=== PATIENT | female | born 1945 | race African-American/Black ===

== ENCOUNTER 2016-12-10 08:37 | Inpatient (IN) | payer MEDICARE, MEDICAID ==
[~2016-12-10] VITALS: Ht 162.6 cm; Wt 83.0 kg
[2016-12-10 08:43] VITALS: BP 181/68
[2016-12-10] MEDS ORDERED: CLOPIDOGREL75 MG ORAL (08:57)
[2016-12-10] MEDS ORDERED: FERROUS SULFAT325 MG ORAL (08:57)
[2016-12-10] MEDS ORDERED: LASIX40 MG ORAL (08:57)
[2016-12-10] MEDS ORDERED: NAPROXEN500 M2 ORAL (08:57)
[2016-12-10] MEDS ORDERED: VITAMIN C500 M1 ORAL (08:57)
[2016-12-10] MEDS ORDERED: METOPROLOL TART50 M1 ORAL (08:57)
[2016-12-10] MEDS ORDERED: DOXAZOSIN MESYLA4 MG ORAL (08:57)
[2016-12-10] MEDS ORDERED: HYDRALAZINE HC100 MG ORAL (08:57)
[2016-12-10] MEDS ORDERED: LORazepam Inj 2mg/ml 1ml IV ONE (09:00)
[2016-12-10] MEDS ORDERED: Morphine Sulfate 2mg/ml Inj IVP ONE (09:00)
[2016-12-10] MEDS ORDERED: Nitroglycerin 2% oint pkt TOPIC ONE (09:00)
--- NOTE | 2016-12-10 09:11 | Emergency Room Report ---
History of Present Illness General Chief Complaint: Chest Pain Source: Patient Present Illness HPI The patient presents with substernal chest pain that started 45 minutes before presentation to the emergency department. She felt pressure radiating up into both of her arms. She also felt very shaky at that time. Paramedics gave her aspirin nitroglycerin and this helped a small amount. The pain is now 5/10. In August she had a stent placed. She's had 3 cardiac stents. She states that she had a normal treadmill before that. Also they said that she did not need a stent but then reversed that and put a stent in. She had allergic reaction to one of the blood thinning agents. Also she's had allergic reaction to hydrochlorothiazide. At the time she was in the hospital with lip swelling someone reported to her that she had multiple allergies to things as she does usually eat. She is on Plavix. She ate breakfast and included pepperoni which he usually doesn't eat. She's had GI problems. She had GI bleeds in september with hemoglobin of 6 requiring transfusions. She saw last and was told that her blood count was back up to 12. She denies any melena. She felt nauseated today but has not vomited. No abdominal pain. No fevers, cough, URI sy, dyspnea, dysuria. Allergies: Coded Allergies: [place] (Verified Allergy, Unknown, 12/10/16) CORN (Verified Allergy, Unknown, 12/10/16) HYDROCHLOROTHIAZIDE (Verified Allergy, Unknown, 12/10/16) PENICILLINS (Verified Allergy, Unknown, 12/10/16) COPIED FROM UNCODED SECTION TICAGRELOR (Verified Allergy, Unknown, 12/10/16) Wheat (Verified Allergy, Unknown, 12/10/16) Whole Milk (Verified Allergy, Unknown, 12/10/16) Uncoded Allergies: white egg (Allergy, Unknown, 12/10/16) Patient History Past Medical History: see triage record Past Surgical History: PTCA Social History: Denies: smoking Social History Narrative from home Reviewed Nursing Documentation: PMH: Agreed, PSxH: Agreed Nursing Documentation-PMH Hx Hypertension: Yes Review of Systems All Other Systems: negative except mentioned in HPI Physical Exam Vital Signs Date Time Temp Pulse Resp B/P Pulse Ox O2 Delivery O2 Flow Rate FiO2 12/10/16 08:28 97.0 82 18 181/68 95 Room Air Sp02 EP Interpretation: reviewed, normal General Appearance: well appearing, no apparent distress, GCS 15 Head: normocephalic Eyes: bilateral eye PERRL, bilateral eye other - arcus ENT: moist mucus membranes Neck: supple Respiratory: lungs clear, normal breath sounds Cardiovascular #1: regular rate, rhythm Cardiovascular #2: 2+ radial (R) Gastrointestinal: normal inspection, normal bowel sounds, non tender, no mass, non-distended Musculoskeletal: back normal, gait/station normal, normal range of motion Neurologic: alert, oriented x3, grossly normal Psychiatric: anxious Skin: normal inspection, warm/dry Medical Decision Making Diagnostic Impression: Primary Impression: ACS (acute coronary syndrome) ER Course Patient presents with substernal chest pressure. Differential includes acute myocardial infarction, acute coronary syndrome, GERD with esophageal spasm, anxiety amongst others. The fact that she had a recent stent placed puts her at higher risk. We need to evaluate her with EKG, chest x-ray and labs. She' ll be treated with nitroglycerin paste morphine and also Pepcid with some Ativan. Paramedics gave her aspirin in the field. Labs with negative troponin. EKG here shows normal sinus rhythm with a rate of 81, left atrial enlargement and left axis deviation with left ventricular hypertrophy. Patient improved with treatment. Still needs observation and further troponin tests. Admit telemetry Dr. Moss. Laboratory Tests Test 12/10/16 09:00 White Blood Count 6.7 K/UL (4.8-10.8) Red Blood Count 4.51 M/UL (4.20-5.40) Hemoglobin 12.7 G/DL (12.0-16.0) Hematocrit 40.3 % (37.0-47.0) Mean Corpuscular Volume 89 FL (80-99) Mean Corpuscular Hemoglobin 28.1 PG (27.0-31.0) Mean Corpuscular Hemoglobin Concent 31.5 G/DL (32.0-36.0) L Red Cell Distribution Width 17.4 % (11.6-14.8) H Platelet Count 183 K/UL (150-450) Mean Platelet Volume 8.5 FL (6.5-10.1) Neutrophils (%) (Auto) 65.7 % (45.0-75.0) Lymphocytes (%) (Auto) 21.7 % (20.0-45.0) Monocytes (%) (Auto) 8.4 % (1.0-10.0) Eosinophils (%) (Auto) 3.3 % (0.0-3.0) H Basophils (%) (Auto) 0.9 % (0.0-2.0) Prothrombin Time 10.0 SEC (9.30-11.50) Prothrombin Time INR 1.0 (0.9-1.1) PTT 28 SEC (23-33) Sodium Level 142 mEQ/L (135-145) Potassium Level 3.1 mEQ/L (3.4-4.9) L Chloride Level 103 mEQ/L (98-107) Carbon Dioxide Level 26 mEQ/L (20-30) Anion Gap 13 (5-15) Blood Urea Nitrogen 26 mg/dL (7-23) H Creatinine 1.3 mg/dL (0.5-0.9) H Estimate Glomerular Filtration Rate 49.2 mL/min (>60) Glucose Level 146 mg/dL (74-106) H Calcium Level 9.0 mg/dL (8.6-10.2) Total Bilirubin < 0.2 mg/dL (0.0-1.2) Aspartate Amino Transferase (AST) 14 U/L (5-40) Alanine Aminotransferase (ALT) 10 U/L (3-33) Alkaline Phosphatase 86 U/L (35-104) Total Creatine Kinase 123 U/L (26-140) Troponin I < 0.30 ng/mL (<=0.30) Pro-B-Type Natriuretic Peptide 54 pg/mL (0-125) Total Protein 7.2 g/dL (6.6-8.7) Albumin 3.8 g/dL (3.5-5.2) Globulin 3.4 g/dL Albumin/Globulin Ratio 1.1 (1.0-2.7) Lipase 11 U/L (< 60) EKG Diagnostic Results Rate: normal Rhythm: NSR ST Segments: no acute changes - LVH Rhythm Strip Diag. Results EP Interpretation: yes Rhythm: NSR, no PVC's, no ectopy Chest X-Ray Diagnostic Results Chest X-Ray Diagnostic Results : Chest X-Ray Ordered: Yes # of Views/Limited/Complete: 1 View Indication: Chest Pain EP Interpretation: Yes Interpretation: no consolidation, no effusion, no pneumothorax, no acute cardiopulmonary disease Impression: No acute disease Interpreting ER Provider: Electronic sign Tolu Winslow MD Last Vital Signs Date Time Temp Pulse Resp B/P Pulse Ox O2 Delivery O2 Flow Rate FiO2 12/10/16 20:00 97.9 57 16 153/74 96 Room Air Status: improved Disposition: ADMITTED INPATIENT Condition: Serious Scripts Metoprolol Tartrate (Metoprolol Tartrate) 25 Mg Tablet 37.5 MG ORAL EVERY 12 HOURS for 30 Days, TAB Prov: BO MOSS 12/12/16 Tolu Winslow M.D. Dec 10, 2016 09:11
[2016-12-10 09:36] LABS: BASOPHILS % (AUTO) 0.9 % (0.0-2.0); EOSINOPHILS % (AUTO) 3.3 % (0.0-3.0); LYMPHOCYTES % (AUTO) 21.7 % (20.0-45.0); MEAN CORPUSCULAR HEMOGLOBIN 28.1 PG (27.0-31.0); MEAN CORPUSCULAR HGB CONC 31.5 G/DL (32.0-36.0); MEAN CORPUSCULAR VOLUME 89 FL (80-99); MEAN PLATELET VOLUME 8.5 FL (6.5-10.1); MONOCYTES % (AUTO) 8.4 % (1.0-10.0); NEUTROPHILS % (AUTO) 65.7 % (45.0-75.0); PLATELET COUNT 183 K/UL (150-450); RED BLOOD COUNT 4.51 M/UL (4.20-5.40); RED CELL DISTRIBUTION WIDTH 17.4 % (11.6-14.8); WHITE BLOOD COUNT 6.7 K/UL (4.8-10.8)
[2016-12-10 09:37] LABS: ALANINE AMINOTRANSFERASE 10 U/L (3-33); ALBUMIN/GLOBULIN RATIO 1.1 (1.0-2.7); ANION GAP 13 (5-15); ASPARTATE AMINO TRANSFERASE 14 U/L (5-40); CARBON DIOXIDE 26 mEQ/L (20-30); CHLORIDE 103 mEQ/L (98-107); CREATININE 1.3 mg/dL (0.5-0.9); GLOMERULAR FILTRATION RATE 49.2 mL/min (>60); HEMOLYSIS 34; LIPASE 11 U/L (< 60); POTASSIUM 3.1 mEQ/L (3.4-4.9); SODIUM 142 mEQ/L (135-145); TOTAL PROTEIN 7.2 g/dL (6.6-8.7)
[2016-12-10 09:53] LABS: TROPONIN I < 0.30 ng/mL (<=0.30)
[2016-12-10 09:55] VITALS: BP 159/62
[2016-12-10] MEDS ORDERED: KCl 10% 20 mEq/15ml liquid ORAL ONE (10:00)
[2016-12-10] MEDS ORDERED: Morphine Sulfate 2mg/ml Inj IM ONE (10:45)
[2016-12-10 11:03] VITALS: BP 145/61
[2016-12-10] MEDS ORDERED: Enalaprilat 2.5mg/2ml Inj IV PRN (13:30)
[2016-12-10] MEDS ORDERED: Ketorolac 30mg Inj IV PRN (13:30)
[2016-12-10] MEDS ORDERED: Diltiazem 25mg/5ml IV PRN (13:30)
[2016-12-10] MEDS ORDERED: DuoNeb 0.5-3(2.5)mg/3ml neb HHN PRN (13:30)
[2016-12-10] MEDS ORDERED: Nitroglycerin Subl 0.4mg tab (Bottle Of 25) SL PRN (13:30)
[2016-12-10] MEDS ORDERED: Miralax 17gm pkt ORAL PRN (13:30)
[2016-12-10] MEDS ORDERED: Morphine Sulfate 2mg/ml Inj IVP PRN (13:30)
--- NOTE | 2016-12-10 13:30 | Diagnostic Imaging Report ---
Indication: Chest pain Comparison: None A single view chest radiograph was obtained. Findings: Cardiomediastinal appearance is within normal limits for age with some prominence of heart size, probably normal accounting for age. Pulmonary vascularity is appropriate. The diaphragmatic contour is smooth and costophrenic angles are sharp. No pleural effusions are identified. The bones are unremarkable. Impression: No acute findings
[2016-12-10] MEDS: Furosemide 40mg tab ORAL SCH (17:39)
--- NOTE | 2016-12-10 18:01 | History and Physical ---
History of Present Illness General Date patient seen: Dec 10, 2016 Reason for Hospitalization: Chest Pain Present Illness HPI 71 year old female with hx of CAD, coronary stenting, presented to ER with substernal chest pain that started 45 minutes. She felt pressure radiating up into both of her arms. She also felt very shaky at that time. Paramedics gave her aspirin nitroglycerin and this helped a small amount. The pain subsided somewhat. She is admitted for ACS and /or NSTEMI. Allergies: Coded Allergies: [place] (Verified Allergy, Unknown, 12/10/16) CORN (Verified Allergy, Unknown, 12/10/16) HYDROCHLOROTHIAZIDE (Verified Allergy, Unknown, 12/10/16) PENICILLINS (Verified Allergy, Unknown, 12/10/16) COPIED FROM UNCODED SECTION TICAGRELOR (Verified Allergy, Unknown, 12/10/16) Wheat (Verified Allergy, Unknown, 12/10/16) Whole Milk (Verified Allergy, Unknown, 12/10/16) Uncoded Allergies: white egg (Allergy, Unknown, 12/10/16) Medication History Scheduled Ascorbic Acid* (Vitamin C*), 500 MG ORAL DAILY, (Reported) Clopidogrel* (Clopidogrel*), 75 MG ORAL DAILY, (Reported) Doxazosin Mesylate* (Doxazosin Mesylate*), 4 MG ORAL DAILY, (Reported) Ferrous Sulfate* (Ferrous Sulfate*), 325 MG ORAL THREE TIMES A DAY, (Reported) Furosemide* (Lasix*), 40 MG ORAL BID, (Reported) Hydralazine Hcl* (Hydralazine Hcl*), 100 MG ORAL EVERY 8 HOURS, (Reported) Metoprolol Tartrate* (Metoprolol Tartrate*), 50 MG ORAL EVERY 12 HOURS, ( Reported) Naproxen* (Naproxen*), 500 MG ORAL TWICE A DAY, (Reported) Patient History Healthcare decision maker Resuscitation status Full Code Advanced Directive on File Past Medical/Surgical History Past Medical/Surgical History: (1) ACS (acute coronary syndrome) Review of Systems All Other Systems: negative except mentioned in HPI Physical Exam General Appearance: WD/WN, no apparent distress Lines, tubes and drains: peripheral, PICC HEENT: normocephalic, anicteric Neck: non-tender Respiratory/Chest: chest wall non-tender, normal breath sounds Cardiovascular/Chest: normal peripheral pulses, normal rate Abdomen: no organomegaly Genitourinary/Rectal: normal genital exam Last 24 Hour Vital Signs Date Time Temp Pulse Resp B/P Pulse Ox O2 Delivery O2 Flow Rate FiO2 12/10/16 11:25 54 18 145/61 96 Room Air 12/10/16 11:03 97.8 52 14 145/61 99 Room Air 12/10/16 09:55 61 13 159/62 97 Room Air 12/10/16 09:45 97.0 12/10/16 09:12 104/92 12/10/16 08:43 97.0 18 181/68 95 Room Air 12/10/16 08:43 82 18 Room Air 12/10/16 08:28 97.0 82 18 181/68 95 Room Air Laboratory Tests Test 12/10/16 09:00 White Blood Count 6.7 K/UL (4.8-10.8) Red Blood Count 4.51 M/UL (4.20-5.40) Hemoglobin 12.7 G/DL (12.0-16.0) Hematocrit 40.3 % (37.0-47.0) Mean Corpuscular Volume 89 FL (80-99) Mean Corpuscular Hemoglobin 28.1 PG (27.0-31.0) Mean Corpuscular Hemoglobin Concent 31.5 G/DL (32.0-36.0) L Red Cell Distribution Width 17.4 % (11.6-14.8) H Platelet Count 183 K/UL (150-450) Mean Platelet Volume 8.5 FL (6.5-10.1) Neutrophils (%) (Auto) 65.7 % (45.0-75.0) Lymphocytes (%) (Auto) 21.7 % (20.0-45.0) Monocytes (%) (Auto) 8.4 % (1.0-10.0) Eosinophils (%) (Auto) 3.3 % (0.0-3.0) H Basophils (%) (Auto) 0.9 % (0.0-2.0) Prothrombin Time 10.0 SEC (9.30-11.50) Prothromb Time International Ratio 1.0 (0.9-1.1) Activated Partial Thromboplast Time 28 SEC (23-33) Sodium Level 142 mEQ/L (135-145) Potassium Level 3.1 mEQ/L (3.4-4.9) L Chloride Level 103 mEQ/L (98-107) Carbon Dioxide Level 26 mEQ/L (20-30) Anion Gap 13 (5-15) Blood Urea Nitrogen 26 mg/dL (7-23) H Creatinine 1.3 mg/dL (0.5-0.9) H Estimat Glomerular Filtration Rate 49.2 mL/min (>60) Glucose Level 146 mg/dL (74-106) H Calcium Level 9.0 mg/dL (8.6-10.2) Total Bilirubin < 0.2 mg/dL (0.0-1.2) Aspartate Amino Transf (AST/SGOT) 14 U/L (5-40) Alanine Aminotransferase (ALT/SGPT) 10 U/L (3-33) Alkaline Phosphatase 86 U/L (35-104) Total Creatine Kinase 123 U/L (26-140) Troponin I < 0.30 ng/mL (<=0.30) Pro-B-Type Natriuretic Peptide 54 pg/mL (0-125) Total Protein 7.2 g/dL (6.6-8.7) Albumin 3.8 g/dL (3.5-5.2) Globulin 3.4 g/dL Albumin/Globulin Ratio 1.1 (1.0-2.7) Lipase 11 U/L (< 60) Height (Feet): 5 Height (Inches): 4.00 Weight (Pounds): 183 Medications Current Medications Medications (Trade) Dose Ordered Sig/Kalyn Route PRN Reason Start Time Stop Time Status Last Admin Dose Admin Acetaminophen (Tylenol) 650 mg Q4H PRN ORAL FEVER>100.5 12/10/16 13:30 01/09/17 13:29 Albuterol/ Ipratropium (DuoNeb 0.5-3(2.5)mg/3ml) 3 ml Q4H PRN HHN Shortness of Breath 12/10/16 13:30 12/15/16 13:29 Aspirin (ASA) 162 mg DAILY ORAL 12/11/16 09:00 01/10/17 08:59 Clopidogrel Bisulfate (Plavix) 75 mg DAILY ORAL 12/11/16 09:00 01/10/17 08:59 Diltiazem HCl (Cardizem) 10 mg Q1H PRN IV heart rate more than 120, 12/10/16 13:30 01/09/17 13:29 Doxazosin Mesylate (Cardura) 4 mg DAILY ORAL 12/11/16 09:00 01/10/17 08:59 Enalaprilat (Vasotec) 2.5 mg Q6H PRN IV sbp more than 160 12/10/16 13:30 01/09/17 13:29 Furosemide (Lasix) 40 mg BID ORAL 12/10/16 18:00 01/09/17 17:59 12/10/16 17:39 Heparin Sodium (Porcine) (Heparin 5000 units/ml) 5,000 units EVERY 12 HOURS SUBQ 12/10/16 21:00 01/09/17 20:59 Ketorolac Tromethamine (Toradol 30mg) 30 mg Q6H PRN IV moderate pain ( 4-6) 12/10/16 13:30 12/15/16 13:29 Metoprolol Tartrate (Lopressor) 50 mg EVERY 12 HOURS ORAL 12/10/16 21:00 01/09/17 20:59 Morphine Sulfate (Morphine Sulfate) 2 mg Q4H PRN IVP severe Pain (Pain Scale 7-10) 12/10/16 13:30 12/17/16 13:29 Nitroglycerin (Ntg) 0.4 mg Q5H PRN SL Prn Chest Pain 12/10/16 13:30 01/09/17 13:29 Ondansetron HCl (Zofran) 4 mg Q6H PRN IVP Nausea & Vomiting 12/10/16 13:30 01/09/17 13:29 Pantoprazole (Protonix) 40 mg ACBREAKFAST ORAL 12/11/16 06:30 01/10/17 06:29 Polyethylene Glycol (Miralax) 17 gm DAILYPRN PRN ORAL Constipation 12/10/16 13:30 01/09/17 13:29 Temazepam (Restoril) 15 mg HSPRN PRN ORAL Insomnia 12/10/16 21:00 12/17/16 20:59 Assessment/Plan Problem List: (1) Costochondritis ICD Codes: M94.0 - Chondrocostal junction syndrome [[place]] SNOMED: 12744416 (2) GERD (gastroesophageal reflux disease) ICD Codes: K21.9 - Gastro-esophageal reflux disease without esophagitis SNOMED: 999032056 (3) Stented coronary artery ICD Codes: Z95.5 - Presence of coronary angioplasty implant and graft SNOMED: 51332590, 246900102 (4) ACS (acute coronary syndrome) ICD Codes: I24.9 - Acute ischemic heart disease, unspecified SNOMED: 260601840 Assessment/Plan cardiac evaluation serial ekg echo symptomatic treatment dvt prophylaxis BO GOMEZ Dec 10, 2016 18:01
--- NOTE | 2016-12-10 19:06 | Cardiology Progress Note ---
Assessment/Plan Assessment/Plan chest pain cad with reported hx of stent noncomplaince with dapt hs of recent anemia and tx obsiety sericl enzyme ekg if torp neg perfusion imaging [id number] Objective Last 24 Hour Vital Signs Date Time Temp Pulse Resp B/P Pulse Ox O2 Delivery O2 Flow Rate FiO2 12/10/16 16:00 48 12/10/16 11:25 54 18 145/61 96 Room Air 12/10/16 11:03 97.8 52 14 145/61 99 Room Air 12/10/16 09:55 61 13 159/62 97 Room Air 12/10/16 09:45 97.0 12/10/16 09:12 104/92 12/10/16 08:43 97.0 18 181/68 95 Room Air 12/10/16 08:43 82 18 Room Air 12/10/16 08:28 97.0 82 18 181/68 95 Room Air Laboratory Tests Test 12/10/16 09:00 White Blood Count 6.7 K/UL (4.8-10.8) Red Blood Count 4.51 M/UL (4.20-5.40) Hemoglobin 12.7 G/DL (12.0-16.0) Hematocrit 40.3 % (37.0-47.0) Mean Corpuscular Volume 89 FL (80-99) Mean Corpuscular Hemoglobin 28.1 PG (27.0-31.0) Mean Corpuscular Hemoglobin Concent 31.5 G/DL (32.0-36.0) L Red Cell Distribution Width 17.4 % (11.6-14.8) H Platelet Count 183 K/UL (150-450) Mean Platelet Volume 8.5 FL (6.5-10.1) Neutrophils (%) (Auto) 65.7 % (45.0-75.0) Lymphocytes (%) (Auto) 21.7 % (20.0-45.0) Monocytes (%) (Auto) 8.4 % (1.0-10.0) Eosinophils (%) (Auto) 3.3 % (0.0-3.0) H Basophils (%) (Auto) 0.9 % (0.0-2.0) Prothrombin Time 10.0 SEC (9.30-11.50) Prothromb Time International Ratio 1.0 (0.9-1.1) Activated Partial Thromboplast Time 28 SEC (23-33) Sodium Level 142 mEQ/L (135-145) Potassium Level 3.1 mEQ/L (3.4-4.9) L Chloride Level 103 mEQ/L (98-107) Carbon Dioxide Level 26 mEQ/L (20-30) Anion Gap 13 (5-15) Blood Urea Nitrogen 26 mg/dL (7-23) H Creatinine 1.3 mg/dL (0.5-0.9) H Estimat Glomerular Filtration Rate 49.2 mL/min (>60) Glucose Level 146 mg/dL (74-106) H Calcium Level 9.0 mg/dL (8.6-10.2) Total Bilirubin < 0.2 mg/dL (0.0-1.2) Aspartate Amino Transf (AST/SGOT) 14 U/L (5-40) Alanine Aminotransferase (ALT/SGPT) 10 U/L (3-33) Alkaline Phosphatase 86 U/L (35-104) Total Creatine Kinase 123 U/L (26-140) Troponin I < 0.30 ng/mL (<=0.30) Pro-B-Type Natriuretic Peptide 54 pg/mL (0-125) Total Protein 7.2 g/dL (6.6-8.7) Albumin 3.8 g/dL (3.5-5.2) Globulin 3.4 g/dL Albumin/Globulin Ratio 1.1 (1.0-2.7) Lipase 11 U/L (< 60) VALENTINE MCMILLAN Dec 10, 2016 19:06
[2016-12-10 20:00] VITALS: BP 153/74
[2016-12-10] MEDS: Heparin 5000 units/ml inj SUBQ SCH (20:44)
[2016-12-10] MEDS: Metoprolol 50mg tab ORAL SCH (21:00)
[2016-12-11] VITALS (9 sets, daily range): BP systolic 143–183; BP diastolic 71–94
--- NOTE | 2016-12-11 00:15 | Consultation ---
DATE OF CONSULTATION: 12/10/2016 CARDIOLOGY CONSULTATION CONSULTING PHYSICIAN: Nikita Alexis M.D. REFERRING PHYSICIAN: Orly oMss M.D. REASON FOR REFERRAL: Chest pain. HISTORY OF PRESENT ILLNESS: This is a 71-year-old female, whose history dates back to approximately July or August of this year when apparently she was having chest discomfort, presented to the primary care physician, referred to a floor assembler. A stress test apparently was performed and the patient subsequently underwent a cardiac catheterization and had three stents placed in an unknown vessel. After that, he has been doing okay until today he started having some pressure sensation in the right side of the chest, not on the left side. Rather the pain radiated to the arms bilaterally and tried to rest, but this pain did not resolve. Paramedics were summoned. They gave her some nitroglycerin initially at this time minimally improved, but eventually took about an hour for the pain to completely resolve. She is not having the pain at this time at all. There is no PND or orthopnea. She had palpitation during the episode. She does not have any dizziness or lightheadedness. PAST MEDICAL HISTORY: Positive history of coronary artery disease as mentioned with history of stenting according to the patient. Subsequently in September 2016, she apparently had some laboratory testing that showed hemoglobin was down to 6 and received 2 units of blood transfusion and iron supplementation and apparently had an endoscopy, not clear what they found, however, the patient at some point, was taken off of dual antiplatelet agents. In fact, she recalls that she had gone in with some swelling of her lips that was eventually diagnosed with allergic reaction to Brilinta she was taking and she was noted to have hemoglobin of 6 and received blood transfusion and workup was initiated. The patient subsequently has been given iron and most recent blood test gradually showed improvement in her hemoglobin from 9 to subsequently 12 according to the patient last week. The etiology of her gastrointestinal bleed is not known by the patient. The patient is not a diabetic. She does not have high blood pressure. Never had a heart attack. No cancer. No stroke. No hepatitis or tuberculosis. No asthma. No emphysema. No ulcers that she has known about. No kidney or liver problems or thyroid problems or arthritis. There are no blood clots. ALLERGIES: She is allergic to Brilinta and she is allergic to penicillin and she is allergic to hydrochlorothiazide. She indicates that Brilinta and hydrochlorothiazide apparently cause her swelling in the mouth. SOCIAL HISTORY: She used to smoke between age of 21 and 23. No alcohol. No drugs. REVIEW OF SYSTEMS: Gastrointestinal: She denies any nausea, vomiting, diarrhea, or constipation. Genitourinary System: Negative. Pulmonary: Negative. Constitutional: Negative. Neurologic: Negative. PHYSICAL EXAMINATION: GENERAL: Shows her to be obese elderly female, in no apparent respiratory distress. VITAL SIGNS: Temperature is 97.8 degrees, pulse of 54, blood pressure 145/61, and 96% to 99% saturation on room air. NECK: Supple. No jugular venous distention. No abdominojugular reflux noted. LUNGS: Clear to auscultation and percussion. CARDIAC: S1 is normal. S2 is normal. Regular rate and rhythm. No heaves. No thrills. No gallops noted. There is a systolic ejection murmur noted. ABDOMEN: Soft and obese. Positive bowel sounds. Nontender. EXTREMITIES: There is no clubbing, cyanosis, nor edema. NEUROLOGICAL: She is awake, alert, responsive In no apparent respiratory distress. LABORATORY AND DIAGNOSTIC DATA: White count 6.7, hemoglobin 12.7, and platelet count 183,000. Sodium is 142, potassium 3.1, chloride 103, bicarbonate 26, BUN 26, creatinine 1.3, and a glucose of 143. Liver function tests are all normal. ProBNP is only 54. Troponin less than 0.03. Again, hemoglobin 12.7 on recheck today. The patient's INR is and PTT of 28. The patient had a chest x-ray in the emergency room that showed no acute findings. Her electrocardiogram performed showed sinus rhythm at a rate of 81. Normal leftward axis. No significant ST or T-wave abnormalities or delay in R-wave progression maybe lead placement. ASSESSMENT: 1. Chest pain. 2. Coronary artery disease with history of stenting. 3. History of anemia, status post blood transfusion. 4. Obesity. 5. Noncompliance with dual antiplatelet therapy. PLAN: Dr. Moss, this patient was seen in cardiac consultation. The patient's echocardiogram is unremarkable. The patient does have risk factors for coronary disease and of course because of her prior history of stenting a few months ago and the fact that she has not been compliant with dual antiplatelet therapy and make sure this and should have further evaluation. A set of cardiac enzymes will be checked. Repeat cardiac enzymes will be ordered. The patient has an echocardiogram to be performed to see if there is any segmental wall motion abnormalities. Cardiac enzymes are negative. She may require to undergo perfusion imaging in light of her issues as noted above. Dr. Moss, thank you for allowing me to participate in the care of this patient. Nikita Alexis M.D. DR: NNAMDI JOB#: [id number] CC:
[2016-12-11 07:57] LABS: BASOPHILS % (AUTO) 0.8 % (0.0-2.0); EOSINOPHILS % (AUTO) 4.1 % (0.0-3.0); LYMPHOCYTES % (AUTO) 25.8 % (20.0-45.0); MEAN CORPUSCULAR HEMOGLOBIN 28.1 PG (27.0-31.0); MEAN CORPUSCULAR HGB CONC 31.7 G/DL (32.0-36.0); MEAN CORPUSCULAR VOLUME 89 FL (80-99); MEAN PLATELET VOLUME 8.1 FL (6.5-10.1); NEUTROPHILS % (AUTO) 60.3 % (45.0-75.0); PLATELET COUNT 198 K/UL (150-450); RED CELL DISTRIBUTION WIDTH 16.9 % (11.6-14.8); WHITE BLOOD COUNT 5.9 K/UL (4.8-10.8)
[2016-12-11] MEDS: Metoprolol 50mg tab ORAL SCH ×2 (08:06→20:51)
[2016-12-11 08:09] LABS: CRP QUANT 2.3 mg/dL (< 0.5)
[2016-12-11 08:20] LABS: THYROID STIMULATING HORMONE 0.752 uIU/mL (0.300-4.500)
[2016-12-11] MEDS: Aspirin Baby 81mg ORAL SCH (08:27)
[2016-12-11] MEDS: Doxazosin 4mg tab ORAL SCH (08:27)
[2016-12-11] MEDS: Heparin 5000 units/ml inj SUBQ SCH ×2 (08:30→20:57)
[2016-12-11 08:41] LABS: TROPONIN I 0.92 ng/mL (<=0.30)
[2016-12-11] MEDS: Furosemide 40mg tab ORAL SCH ×2 (09:00→17:08)
[2016-12-11 09:46] LABS: CALCIUM 9.2 mg/dL (8.6-10.2); CREATININE 1.1 mg/dL (0.5-0.9); GLOMERULAR FILTRATION RATE 59.8 mL/min (>60); POTASSIUM 3.8 mEQ/L (3.4-4.9)
--- NOTE | 2016-12-11 12:39 | Pulmonology Progress Note ---
Assessment/Plan Problems: (1) Non-ST elevation (NSTEMI) myocardial infarction (2) Costochondritis (3) GERD (gastroesophageal reflux disease) (4) Stented coronary artery (5) ACS (acute coronary syndrome) Assessment/Plan serial troponin stress test in am cardiology following symptomatic treatment Subjective ROS Limited/Unobtainable: No Constitutional: Reports: no symptoms HEENT: Repors: no symptoms Respiratory: Reports: no symptoms Allergies: Coded Allergies: [place] (Verified Allergy, Unknown, 12/10/16) CORN (Verified Allergy, Unknown, 12/10/16) HYDROCHLOROTHIAZIDE (Verified Allergy, Unknown, 12/10/16) PENICILLINS (Verified Allergy, Unknown, 12/10/16) COPIED FROM UNCODED SECTION TICAGRELOR (Verified Allergy, Unknown, 12/10/16) Wheat (Verified Allergy, Unknown, 12/10/16) Whole Milk (Verified Allergy, Unknown, 12/10/16) Uncoded Allergies: white egg (Allergy, Unknown, 12/10/16) Objective Last 24 Hour Vital Signs Date Time Temp Pulse Resp B/P Pulse Ox O2 Delivery O2 Flow Rate FiO2 12/11/16 11:42 97.5 47 18 153/75 98 Room Air 12/11/16 11:00 48 177/77 12/11/16 09:56 59 171/72 12/11/16 09:54 48 20 Room Air 12/11/16 08:50 96.6 49 18 172/74 99 Room Air 12/11/16 08:06 49 172/94 12/11/16 08:00 59 12/11/16 08:00 96.0 49 18 172/94 99 Room Air 12/11/16 04:31 97.0 49 18 145/76 99 Room Air 12/11/16 04:01 183/76 12/11/16 04:00 97.0 52 18 183/76 99 Room Air 12/11/16 04:00 50 12/11/16 00:00 97.9 54 16 152/71 97 Room Air 12/11/16 00:00 56 12/10/16 21:00 57 153/74 12/10/16 20:00 97.9 57 16 153/74 96 Room Air 12/10/16 20:00 57 12/10/16 19:45 50 18 Room Air 12/10/16 16:00 48 Intake and Output 12/10/16 12/11/16 19:00 07:00 Intake Total 0 ml Balance 0 ml Intake Oral 0 ml # Voids 1 General Appearance: WD/WN HEENT: normocephalic, atraumatic Respiratory/Chest: chest wall non-tender, lungs clear Cardiovascular: normal rate Abdomen: normal bowel sounds, soft, non tender Genitourinary: normal external genitalia Extremities: no cyanosis Skin: no rash Laboratory Tests 12/11/16 07:35: White Blood Count 5.9, Red Blood Count 4.50, Hemoglobin 12.6, Hematocrit 39.9, Mean Corpuscular Volume 89, Mean Corpuscular Hemoglobin 28.1, Mean Corpuscular Hemoglobin Concent 31.7L, Red Cell Distribution Width 16.9H, Platelet Count 198 , Mean Platelet Volume 8.1, Neutrophils (%) (Auto) 60.3, Lymphocytes (%) (Auto) 25.8, Monocytes (%) (Auto) 9.0, Eosinophils (%) (Auto) 4.1H, Basophils (%) (Auto ) 0.8, Prothrombin Time 10.0, Prothromb Time International Ratio 1.0, Activated Partial Thromboplast Time 28, Sodium Level 144, Potassium Level 3.8, Chloride Level 104, Carbon Dioxide Level 25, Anion Gap 15, Blood Urea Nitrogen 19, Creatinine 1.1H, Estimat Glomerular Filtration Rate 59.8, Glucose Level 92, Calcium Level 9.2, Troponin I 0.92*H, C-Reactive Protein, Quantitative 2.3H, Triglycerides Level 123, Cholesterol Level 167, LDL Cholesterol 100H, HDL Cholesterol 42, Cholesterol/HDL Ratio 4.0, Thyroid Stimulating Hormone (TSH) 0.752 Current Medications Medications (Trade) Dose Ordered Sig/Kalyn Route PRN Reason Start Time Stop Time Status Last Admin Dose Admin Acetaminophen (Tylenol) 650 mg Q4H PRN ORAL FEVER>100.5 12/10/16 13:30 01/09/17 13:29 Albuterol/ Ipratropium (DuoNeb 0.5-3(2.5)mg/3ml) 3 ml Q4H PRN HHN Shortness of Breath 12/10/16 13:30 12/15/16 13:29 Aspirin (ASA) 162 mg DAILY ORAL 12/11/16 09:00 01/10/17 08:59 12/11/16 08:27 Clopidogrel Bisulfate (Plavix) 75 mg DAILY ORAL 12/11/16 09:00 01/10/17 08:59 12/11/16 08:27 Diltiazem HCl (Cardizem) 10 mg Q1H PRN IV heart rate more than 120, 12/10/16 13:30 01/09/17 13:29 Doxazosin Mesylate (Cardura) 4 mg DAILY ORAL 12/11/16 09:00 01/10/17 08:59 12/11/16 08:27 Enalaprilat (Vasotec) 2.5 mg Q6H PRN IV sbp more than 160 12/10/16 13:30 01/09/17 13:29 12/11/16 04:01 Furosemide (Lasix) 40 mg BID ORAL 12/10/16 18:00 01/09/17 17:59 12/11/16 09:00 Heparin Sodium (Porcine) (Heparin 5000 units/ml) 5,000 units EVERY 12 HOURS SUBQ 12/10/16 21:00 01/09/17 20:59 12/11/16 08:30 Ketorolac Tromethamine (Toradol 30mg) 30 mg Q6H PRN IV moderate pain ( 4-6) 12/10/16 13:30 12/15/16 13:29 Metoprolol Tartrate (Lopressor) 50 mg EVERY 12 HOURS ORAL 12/10/16 21:00 01/09/17 20:59 Morphine Sulfate (Morphine Sulfate) 2 mg Q4H PRN IVP severe Pain (Pain Scale 7-10) 12/10/16 13:30 12/17/16 13:29 Nitroglycerin (Ntg) 0.4 mg Q5H PRN SL Prn Chest Pain 12/10/16 13:30 01/09/17 13:29 Ondansetron HCl (Zofran) 4 mg Q6H PRN IVP Nausea & Vomiting 12/10/16 13:30 01/09/17 13:29 Pantoprazole (Protonix) 40 mg ACBREAKFAST ORAL 12/11/16 06:30 01/10/17 06:29 12/11/16 06:17 Polyethylene Glycol (Miralax) 17 gm DAILYPRN PRN ORAL Constipation 12/10/16 13:30 01/09/17 13:29 Temazepam (Restoril) 15 mg HSPRN PRN ORAL Insomnia 12/10/16 21:00 12/17/16 20:59 BO GOMEZ Dec 11, 2016 12:39
[2016-12-11 13:25] LABS: TROPONIN I < 0.30 ng/mL (<=0.30)
--- NOTE | 2016-12-11 16:37 | Cardiology Report ---
APPROVED REPORT EKG Measurement Heart [id number] Sinus bradycardia Possible Left atrial enlargement Borderline ECG
[2016-12-11] MEDS ORDERED: NS 275ml ONE (17:01)
--- NOTE | 2016-12-11 17:07 | Cardiology Report ---
APPROVED REPORT EKG Measurement Heart [id number] Normal sinus rhythm Possible Left atrial enlargement Left axis deviation Left ventricular hypertrophy Abnormal ECG
[2016-12-11 19:11] LABS: TROPONIN I 0.34 ng/mL (<=0.30)
--- NOTE | 2016-12-11 20:55 | Cardiology Progress Note ---
Assessment/Plan Assessment/Plan chest pain / NSTEMI cad with reported hx of stent noncompliance with dapt hs of recent anemia and tx obsiety sericl enzyme notede abn ekg no changes she shoudl have a cardiac cath needs tranfer to cath facility d/w pt Subjective Cardiovascular: Denies: chest pain, lightheadedness, palpitations Respiratory: Denies: SOB with excertion, shortness of breath Gastrointestinal/Abdominal: Denies: abdominal pain Genitourinary: Denies: burning Objective Last 24 Hour Vital Signs Date Time Temp Pulse Resp B/P Pulse Ox O2 Delivery O2 Flow Rate FiO2 12/11/16 20:51 47 143/76 12/11/16 20:00 97.7 47 20 143/76 99 Room Air 12/11/16 19:30 52 18 Room Air 21 12/11/16 16:00 46 12/11/16 15:21 97.5 50 18 144/77 99 Room Air 12/11/16 12:00 47 12/11/16 11:42 97.5 47 18 153/75 98 Room Air 12/11/16 11:00 48 177/77 12/11/16 09:56 59 171/72 12/11/16 09:54 48 20 Room Air 12/11/16 08:50 96.6 49 18 172/74 99 Room Air 12/11/16 08:06 49 172/94 12/11/16 08:00 59 12/11/16 08:00 96.0 49 18 172/94 99 Room Air 12/11/16 04:31 97.0 49 18 145/76 99 Room Air 12/11/16 04:01 183/76 12/11/16 04:00 97.0 52 18 183/76 99 Room Air 12/11/16 04:00 50 12/11/16 00:00 97.9 54 16 152/71 97 Room Air 12/11/16 00:00 56 12/10/16 21:00 57 153/74 General Appearance: no apparent distress Cardiovascular: normal rate, regular rhythm Respiratory/Chest: lungs clear, normal breath sounds Abdomen: normal bowel sounds, non tender, soft Extremities: no swelling Intake and Output 12/10/16 12/11/16 19:00 07:00 Intake Total 0 ml Balance 0 ml Intake Oral 0 ml # Voids 1 Laboratory Tests Test 12/11/16 07:35 12/11/16 12:55 12/11/16 17:55 White Blood Count 5.9 K/UL (4.8-10.8) Red Blood Count 4.50 M/UL (4.20-5.40) Hemoglobin 12.6 G/DL (12.0-16.0) Hematocrit 39.9 % (37.0-47.0) Mean Corpuscular Volume 89 FL (80-99) Mean Corpuscular Hemoglobin 28.1 PG (27.0-31.0) Mean Corpuscular Hemoglobin Concent 31.7 G/DL (32.0-36.0) L Red Cell Distribution Width 16.9 % (11.6-14.8) H Platelet Count 198 K/UL (150-450) Mean Platelet Volume 8.1 FL (6.5-10.1) Neutrophils (%) (Auto) 60.3 % (45.0-75.0) Lymphocytes (%) (Auto) 25.8 % (20.0-45.0) Monocytes (%) (Auto) 9.0 % (1.0-10.0) Eosinophils (%) (Auto) 4.1 % (0.0-3.0) H Basophils (%) (Auto) 0.8 % (0.0-2.0) Prothrombin Time 10.0 SEC (9.30-11.50) Prothromb Time International Ratio 1.0 (0.9-1.1) Activated Partial Thromboplast Time 28 SEC (23-33) Sodium Level 144 mEQ/L (135-145) Potassium Level 3.8 mEQ/L (3.4-4.9) Chloride Level 104 mEQ/L (98-107) Carbon Dioxide Level 25 mEQ/L (20-30) Anion Gap 15 (5-15) Blood Urea Nitrogen 19 mg/dL (7-23) Creatinine 1.1 mg/dL (0.5-0.9) H Estimat Glomerular Filtration Rate 59.8 mL/min (>60) Glucose Level 92 mg/dL (74-106) Calcium Level 9.2 mg/dL (8.6-10.2) Troponin I 0.92 ng/mL (<=0.30) *H < 0.30 ng/mL (<=0.30) 0.34 ng/mL (<=0.30) *H C-Reactive Protein, Quantitative 2.3 mg/dL (< 0.5) H Triglycerides Level 123 mg/dL (< 150) Cholesterol Level 167 mg/dL (< 200) LDL Cholesterol 100 mg/dL (60-99) H HDL Cholesterol 42 mg/dL (> 60) Cholesterol/HDL Ratio 4.0 (3.3-4.4) Thyroid Stimulating Hormone (TSH) 0.752 uIU/mL (0.300-4.500) VALENTINE MCMILLAN Dec 11, 2016 20:55
[2016-12-12] VITALS: BP 147/78
[2016-12-12 00:48] LABS: TROPONIN I < 0.30 ng/mL (<=0.30)
[2016-12-12 01:10] LABS: APPEARANCE,URINE CLEAR; KETONES,URINE NEGATIVE (NEGATIVE); NITRITE,URINE NEGATIVE (NEGATIVE); PH,URINE 7 (4.5-8.0); PROTEIN,URINE NEGATIVE (NEGATIVE); UROBILINOGEN,URINE NORMAL MG/DL (0.0-1.0)
[2016-12-12 01:22] LABS: LEUKOCYTE ESTERASE ,URINE 2+ (NEGATIVE)
[2016-12-12 01:24] LABS: BACTERIA,URINE FEW /HPF; RBC,URINE 0-2 /HPF (0 - 2); SQUAMOUS EPITHELIAL CELL,UR MODERATE /LPF (NONE/OCC)
[2016-12-12 04:00] VITALS: BP 145/64
[2016-12-12 08:00] VITALS: BP 154/74
[2016-12-12 08:21] LABS: TROPONIN I < 0.30 ng/mL (<=0.30)
[2016-12-12] MEDS ORDERED: Metoprolol 25mg tab ORAL SCH (09:00)
[2016-12-12] MEDS: Doxazosin 4mg tab ORAL SCH (09:44)
[2016-12-12] MEDS: Aspirin Baby 81mg ORAL SCH (09:45)
[2016-12-12] MEDS: Furosemide 40mg tab ORAL SCH ×2 (09:45→18:00)
[2016-12-12] MEDS: Heparin 5000 units/ml inj SUBQ SCH (09:46)
[2016-12-12] MEDS ORDERED: LOPRESSOR25 M1 ORAL (11:46)
--- NOTE | 2016-12-12 11:48 | Pulmonology Progress Note ---
Assessment/Plan Problems: (1) Non-ST elevation (NSTEMI) myocardial infarction (2) Costochondritis (3) GERD (gastroesophageal reflux disease) (4) Stented coronary artery (5) ACS (acute coronary syndrome) Assessment/Plan serial troponin, some were positive stress test canceled cardiology following symptomatic treatment might need cardiac cath Subjective ROS Limited/Unobtainable: No Constitutional: Reports: no symptoms HEENT: Repors: no symptoms Respiratory: Reports: no symptoms Cardiovascular: Reports: no symptoms Allergies: Coded Allergies: [place] (Verified Allergy, Unknown, 12/10/16) CORN (Verified Allergy, Unknown, 12/10/16) HYDROCHLOROTHIAZIDE (Verified Allergy, Unknown, 12/10/16) PENICILLINS (Verified Allergy, Unknown, 12/10/16) COPIED FROM UNCODED SECTION TICAGRELOR (Verified Allergy, Unknown, 12/10/16) Wheat (Verified Allergy, Unknown, 12/10/16) Whole Milk (Verified Allergy, Unknown, 12/10/16) Uncoded Allergies: white egg (Allergy, Unknown, 12/10/16) Objective Last 24 Hour Vital Signs Date Time Temp Pulse Resp B/P Pulse Ox O2 Delivery O2 Flow Rate FiO2 12/12/16 09:45 49 154/74 12/12/16 09:00 49 154/74 12/12/16 08:00 46 12/12/16 08:00 97.3 49 20 154/74 99 12/12/16 07:10 46 18 Room Air 21 12/12/16 04:00 47 12/12/16 04:00 97.2 47 20 145/64 95 Room Air 12/12/16 00:00 97.0 48 20 147/78 Room Air 12/12/16 00:00 48 12/11/16 20:51 47 143/76 12/11/16 20:00 97.7 47 20 143/76 99 Room Air 12/11/16 20:00 47 12/11/16 19:30 52 18 Room Air 21 12/11/16 16:00 46 12/11/16 15:21 97.5 50 18 144/77 99 Room Air 12/11/16 12:00 47 Intake and Output 12/11/16 12/12/16 19:00 07:00 Intake Total 720 ml Output Total 600 ml Balance 120 ml Intake Oral 720 ml Output Urine Total 600 ml # Voids 1 # Bowel Movements 1 General Appearance: WD/WN HEENT: normocephalic, atraumatic Respiratory/Chest: chest wall non-tender, lungs clear Cardiovascular: normal peripheral pulses, normal rate Abdomen: normal bowel sounds, soft, non tender Genitourinary: normal external genitalia Extremities: no cyanosis Skin: no rash 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 Lymphatic: no neck adenopathy Laboratory Tests 12/11/16 12:55: Troponin I < 0.30 12/11/16 17:55: Troponin I 0.34*H 12/12/16 00:20: Troponin I < 0.30 12/12/16 00:41: Urine Color Pale yellow, Urine Appearance Clear, Urine pH 7, Urine Specific [place] 1.010, Urine Protein Negative, Urine Glucose (UA) Negative, Urine Ketones Negative, Urine Occult Blood Negative, Urine Nitrite Negative, Urine Bilirubin Negative, Urine Urobilinogen Normal, Urine Leukocyte Esterase 2+H, Urine RBC 0-2, Urine WBC 10-15H, Urine Squamous Epithelial Cells ModerateH, Urine Bacteria Few 12/12/16 07:25: Troponin I < 0.30 Current Medications Medications (Trade) Dose Ordered Sig/Kalyn Route PRN Reason Start Time Stop Time Status Last Admin Dose Admin Acetaminophen (Tylenol) 650 mg Q4H PRN ORAL FEVER>100.5 12/10/16 13:30 01/09/17 13:29 Albuterol/ Ipratropium (DuoNeb 0.5-3(2.5)mg/3ml) 3 ml Q4H PRN HHN Shortness of Breath 12/10/16 13:30 12/15/16 13:29 Amlodipine Besylate (Norvasc) 5 mg DAILY ORAL 12/12/16 09:00 01/11/17 08:59 12/12/16 09:45 Aspirin (ASA) 162 mg DAILY ORAL 12/11/16 09:00 01/10/17 08:59 12/12/16 09:45 Clopidogrel Bisulfate (Plavix) 75 mg DAILY ORAL 12/11/16 09:00 01/10/17 08:59 12/12/16 09:44 Diltiazem HCl (Cardizem) 10 mg Q1H PRN IV heart rate more than 120, 12/10/16 13:30 01/09/17 13:29 Doxazosin Mesylate (Cardura) 4 mg DAILY ORAL 12/11/16 09:00 01/10/17 08:59 12/12/16 09:44 Enalaprilat (Vasotec) 2.5 mg Q6H PRN IV sbp more than 160 12/10/16 13:30 01/09/17 13:29 12/11/16 04:01 Furosemide (Lasix) 40 mg BID ORAL 12/10/16 18:00 01/09/17 17:59 12/12/16 09:45 Heparin Sodium (Porcine) (Heparin 5000 units/ml) 5,000 units EVERY 12 HOURS SUBQ 12/10/16 21:00 01/09/17 20:59 12/12/16 09:46 Ketorolac Tromethamine (Toradol 30mg) 30 mg Q6H PRN IV moderate pain ( 4-6) 12/10/16 13:30 12/15/16 13:29 Metoprolol Tartrate (Lopressor) 37.5 mg EVERY 12 HOURS ORAL 12/12/16 09:00 01/11/17 08:59 Morphine Sulfate (Morphine Sulfate) 2 mg Q4H PRN IVP severe Pain (Pain Scale 7-10) 12/10/16 13:30 12/17/16 13:29 Nitroglycerin (Ntg) 0.4 mg Q5H PRN SL Prn Chest Pain 12/10/16 13:30 01/09/17 13:29 Ondansetron HCl (Zofran) 4 mg Q6H PRN IVP Nausea & Vomiting 12/10/16 13:30 01/09/17 13:29 Pantoprazole (Protonix) 40 mg ACBREAKFAST ORAL 12/11/16 06:30 01/10/17 06:29 12/12/16 06:33 Polyethylene Glycol (Miralax) 17 gm DAILYPRN PRN ORAL Constipation 12/10/16 13:30 01/09/17 13:29 Temazepam (Restoril) 15 mg HSPRN PRN ORAL Insomnia 12/10/16 21:00 12/17/16 20:59 BO GOMEZ Dec 12, 2016 11:48
[2016-12-12 12:00] VITALS: BP 150/80
[2016-12-12 16:00] VITALS: BP 144/77
--- NOTE | 2016-12-12 18:11 | Cardiology Progress Note ---
Assessment/Plan Assessment/Plan chest pain / NSTEMI cad with reported hx of stent noncompliance with dapt hs of recent anemia and tx obsiety sericl enzyme notede abn nwo normal pattern may be suggestive of ischmeia ekg no changes cath at [facility] d/w case staceyaer d/ chong d/w rn Subjective Subjective loks comfortable goign to [facility] Objective Last 24 Hour Vital Signs Date Time Temp Pulse Resp B/P Pulse Ox O2 Delivery O2 Flow Rate FiO2 12/12/16 16:00 97.7 51 22 144/77 100 Room Air 12/12/16 16:00 48 12/12/16 12:00 49 12/12/16 12:00 98.1 48 20 150/80 98 12/12/16 09:45 49 154/74 12/12/16 09:00 49 154/74 12/12/16 08:00 46 12/12/16 08:00 97.3 49 20 154/74 99 12/12/16 07:10 46 18 Room Air 21 12/12/16 04:00 47 12/12/16 04:00 97.2 47 20 145/64 95 Room Air 12/12/16 00:00 97.0 48 20 147/78 Room Air 12/12/16 00:00 48 12/11/16 20:51 47 143/76 12/11/16 20:00 97.7 47 20 143/76 99 Room Air 12/11/16 20:00 47 12/11/16 19:30 52 18 Room Air 21 General Appearance: no apparent distress Intake and Output 12/11/16 12/12/16 19:00 07:00 Intake Total 720 ml Output Total 600 ml Balance 120 ml Intake Oral 720 ml Output Urine Total 600 ml # Voids 1 # Bowel Movements 1 Laboratory Tests Test 12/12/16 00:20 12/12/16 00:41 12/12/16 07:25 Troponin I < 0.30 ng/mL (<=0.30) < 0.30 ng/mL (<=0.30) Urine Color Pale yellow Urine Appearance Clear Urine pH 7 (4.5-8.0) Urine Specific [place] 1.010 (1.005-1.035) Urine Protein Negative (NEGATIVE) Urine Glucose (UA) Negative (NEGATIVE) Urine Ketones Negative (NEGATIVE) Urine Occult Blood Negative (NEGATIVE) Urine Nitrite Negative (NEGATIVE) Urine Bilirubin Negative (NEGATIVE) Urine Urobilinogen Normal MG/DL (0.0-1.0) Urine Leukocyte Esterase 2+ (NEGATIVE) H Urine RBC 0-2 /HPF (0 - 2) Urine WBC 10-15 /HPF (0 - 2) H Urine Squamous Epithelial Cells Moderate /LPF (NONE/OCC) H Urine Bacteria Few /HPF (NONE) VALENTINE MCMILLAN Dec 12, 2016 18:11
--- NOTE | 2016-12-13 14:12 | Discharge Summary ---
Discharge Summary Hospital Course Date of Admission Dec 10, 2016 at 09:50 Date of Discharge Dec 12, 2016 at 18:00 Admitting Diagnosis ACS HPI Cassie Murillo is a 71 year old female who was admitted on Dec 10, 2016 at 09: 50 for Acute Coronary Syndrome Hospital Course [id number] Discharge Discharge Disposition Patient was discharged to acute care facility Discharge Diagnoses: Beryl Pearson NP Dec 13, 2016 14:12
--- NOTE | 2016-12-14 06:45 | Discharge Summary 2 SIG ---
DATE OF ADMISSION: 12/10/2016 DATE OF DISCHARGE: 12/12/2016 TECHNICAL SUPPORT ASSOCIATE: Nikita Alexis M.D. BRIEF HOSPITAL COURSE: The patient is a 71-year-old female with Coronary artery disease status post coronary stenting presented to ED complaining of substernal chest pain that started 45 minutes prior to admission. She felt pressure radiating in both upper arms and felt shaky. She was given aspirin and nitroglycerin by paramedics, which gave partial relief. On evaluation at ED, troponin was negative. EKG showed normal sinus rhythm with left atrial enlargement and left axis deviation with left ventricular hypertrophy. Chest x-ray done showed no acute cardiopulmonary disease. No consolidation. No effusion. No pneumothorax. Due to her risk factors, she was admitted to telemetry for acute coronary syndrome, costochondritis, and GERD. She underwent cardiac evaluation, serial EKGs and cardiac enzyme monitoring. She was seen by Dr. Alexis. Echocardiogram done, however, official result not out. Subsequent cardiac troponins were elevated x2. She was initially planned to undergo stress test, however, procedure was canceled, as the patient would need cardiac catheterization. She was eventually discharged to [facility]. FINAL DIAGNOSES: 1. Non-ST elevated myocardial infarction. 2. Coronary artery disease with prior stenting. 3. Noncompliance with dual antiplatelet therapy. 4. Obesity. 5. Costochondritis. 6. Gastroesophageal reflux disease. Orly Moss M.D. I have been assigned to dictate discharge summary on this account and I was not involved in the patient's management. Beryl Pearson N.P. DR: GAVIOTA JOB#: [id number] CC:
== END 2016-12-12 18:00 | disposition short-term general hospital (02) | DRG 282 ==
LOC: EDBD 08:37 → EMR 09:09 → 2E 09:50 → EDBEDREQ 11:41 → 2E 12-11 23:36
DX: I21.4 Non-ST elevation (NSTEMI) myocardial infarction (principal); E66.9 Obesity, unspecified; I24.9 Acute ischemic heart disease, unspecified; Z95.5 Presence of coronary angioplasty implant and graft; Z88.8 Allergy status to other drugs, medicaments and biological substances; Z88.0 Allergy status to penicillin; K21.9 Gastro-esophageal reflux disease without esophagitis; I25.10 Atherosclerotic heart disease of native coronary artery without angina pectoris; Z91.14 Patient's other noncompliance with medication regimen; M94.0 Chondrocostal junction syndrome [Tietze]
CPT/HCPCS: 36415; 71010; 80048; 80053; 80061; 81003; 82550; 83690; 83880; 84443; 84484; 85025; 85610; 85730; 86140; 87086; 87181; 93005; 93306; 94664